=== PATIENT | female | born 1970 | race African-American/Black ===

== ENCOUNTER 2019-12-31 09:57 | Outpatient (CLI) | payer OTHER, SELFPAY ==
--- NOTE | ~2019-12-31 | XR_ITS ---
EXAMINATION: XR lg joint inject/asp w image DATE: 12/31/2019 10:43 INDICATION: Right shoulder pain. TECHNIQUE: A time-out was performed to verify the patient's name, date of , and procedure to b e performed. The procedure including the risks, benefits, and alternatives was discussed with the pat ient. Risks discussed included bleeding and infection. The patient understood the risks and agreed to proceed. The skin overlying the right glenohumeral joint was prepped and draped in usual sterile fa shion. Anesthetic was administered with 1% lidocaine subcutaneously. A 22 G needle was advanced und er fluoroscopic guidance into the joint. Injection of 1 mL of Omnipaque 240 confirmed intra-articula r position of the needle. Subsequently, injectate consisting of 3 mL 0.25% bupivacaine and 1.5 mL 10 mg/mL Kenalog was instilled. The needle was removed and the entry site was cleaned and dressed. Th ere were no immediate complications. Fluoroscopy exposure time was 0.1 minutes. The total number of i mages was 2. FINDINGS: Real-time fluoroscopy demonstrates the needle in the right glenohumeral joint. Patient's pa in prior to procedure:2/10. Patient's pain following the procedure: 0/10. IMPRESSION: 1. Right glenohumeral joint injection of local anesthetic and steroid with decrease in the patient's presenting pain. Reviewed, dictated and finalized at location A. IMPRESSION: 1. Right glenohumeral joint injection of local anesthetic and steroid with decr ease in the patient's presenting pain.
== END 2019-12-31 09:58 | disposition home or self-care (01) ==
LOC: ANHIMG 10:01
PROVIDERS: PCP Family Medicine; Visit Provider Orthopaedic Surgery
DX: M25.511 Pain in right shoulder (principal)
CPT/HCPCS: 20610; 77002; J3301; Q9966

== ENCOUNTER 2021-06-19 00:47 | Day surgery (SDC) | payer OTHER, SELFPAY ==
[2021-05-31 14:31] VITALS: BMI 39.2
[2021-06-19 07:40] VITALS: BP 137/76; PULSE 73; RESP 16; TEMP 36.1; O2SAT 100; BMI 38.8
[2021-06-19] MEDS: LACTATED RINGERS 1,000 ML 150 ML IV CONT (07:54)
--- NOTE | 2021-06-19 08:00 | WPDANESEPPF ---
Anes - Initial Pre Proc Eval Procedure: Operation Date: 06/19/21 08:30 Proposed Procedures p Screening Colonoscopy - Kennedy Basilio MD Date/Time: 06/19/21 08:00 Surgeon: Kennedy Basilio MD Pre Op Diagnosis: neoplasm screening Patient Data Age: 51 Gender: F Height: 1.73 m Weight: 115.8 kg Last Vital Signs Temp 97 F L 06/19/21 07:40 Pulse 73 06/19/21 07:40 Resp 16 06/19/21 07:40 BP 137/76 06/19/21 07:40 Pulse Ox 100 06/19/21 07:40 Allergies Allergy/AdvReac Type Severity Reaction Status Date / Time meperidine Allergy Mild unknown Verified 06/19/21 07:37 peanut Allergy Unknown Urticaria Verified 06/19/21 07:37 sulfamethoxazole Allergy itching Verified 06/19/21 07:37 [From Bactrim] trimethoprim [From Bactrim] Allergy itching Verified 06/19/21 07:37 Home Medications Medication Instructions Recorded Confirmed Type fluticasone propionate 50 1 spray NASAL DAILY #15.8 ml 04/13/20 06/19/21 Rx mcg/actuation nasal spray,suspension meloxicam 15 mg tablet 15 mg PO DAILY #30 tablet 03/27/21 06/19/21 Rx cholecalciferol (vitamin D3) 50 50 mcg PO DAILY 04/10/21 06/19/21 History mcg (2,000 unit) chewable tablet triamcinolone acetonide 0.5 % 1 applic TOPICAL BID #15 g 04/10/21 06/19/21 Rx topical cream amoxicillin 875 mg-potassium 1 tablet PO BID #20 tablet 06/12/21 06/19/21 Rx clavulanate 125 mg tablet Patient hx anesthesia problems: none Family hx anesthesia problems: none Results Review: All pre-operative results and documents have been reviewed as part of the pre-operative evaluation. [facility]LY [facility] Past Medical History Medical History Chronic low back pain with sciatica Environmental allergies GERD (gastroesophageal reflux disease) Irritable bowel syndrome with constipation Other hyperlipidemia Vitamin D deficiency, unspecified Surgical History Surgical History History of cholecystectomy (~2005) History of hysterectomy 2011 Family History Family History Father Diabetes mellitus Family history of alcoholism Family history of kidney disease Family history of diabetes mellitus in first degree relative Social History Social History Alcohol intake: never Substance use: never Substance use type: does not use Living arrangements: alone Gender identity (if verbalized by the patient): Female Spiritual care concerns: No Anes - Eval Final PreProcedure Day of Procedure 06/19/21 08:00 Patient weight: obese Heart: regular rate and rhythm Lungs: clear to auscultation Airway: Mallampati scale class II Neurological: alert and oriented Last oral intake: >/= 8 hours ASA classification: II Emergent: no Anesthetic plan: proceed Anesthesia type and monitoring: general GIVS and standard monitoring Results Review: All pre-operative results and documents have been reviewed as part of the pre-operative evaluation. Informed Consent: The patient's anesthetic plan and its attendant risks and benefits were discussed with the patient/family/POA. Questions were solicited and answers provided to the satisfaction of the patient/family/POA.
--- NOTE | 2021-06-19 08:12 | PM.HPGS ---
History of Present Illness History of Present Illness Consent: Risks, benefits, and alternatives have been discussed and questions answered. Patient agrees to proceed with procedure. Chief complaint: neoplasm screening Narrative: Jil Aguilar is a 51 year old female here for first screening colonoscopy Review of Systems Constitutional: Constitutional: Denies headache(s) and Denies weakness Eyes: Eyes: Denies blurry vision ENT: Reports Normal hearing present, Denies headache(s) and Denies neck pain Cardiovascular: Cardiovascular: Denies chest pain and Denies dyspnea Respiratory: Respiratory: Denies dyspnea Gastrointestinal: Gastrointestinal: Reports no additional gastrointestinal complaints Genitourinary: Genitourinary: Denies dysuria Musculoskeletal: Musculoskeletal: Denies neck pain Integumentary/Breasts: Skin/Breast: Denies dry skin Neurologic: Reports Normal hearing present, Denies headache(s) and Denies weakness Psychiatric: Psychiatric: Denies anxiety Endocrine: Endocrine: Denies change in body appearance Hematologic/Lymphatic: Hematologic/Lymphatic: Denies easy bleeding Allergic/Immunologic: Allergic/Immunologic: Denies urticaria PMFSH Past Medical History Medical History Chronic low back pain with sciatica Environmental allergies GERD (gastroesophageal reflux disease) Irritable bowel syndrome with constipation Other hyperlipidemia Vitamin D deficiency, unspecified Surgical History Surgical History History of cholecystectomy (~2005) History of hysterectomy 2011 Family History Family History Father Diabetes mellitus Family history of alcoholism Family history of kidney disease Family history of diabetes mellitus in first degree relative Social History Social History Alcohol intake: never Substance use: never Substance use type: does not use Living arrangements: alone Gender identity (if verbalized by the patient): Female Spiritual care concerns: No Meds Home Medications and Allergies Home Medications Medication Instructions Recorded Confirmed Type fluticasone propionate 50 1 spray NASAL DAILY #15.8 ml 04/13/20 06/19/21 Rx mcg/actuation nasal spray,suspension meloxicam 15 mg tablet 15 mg PO DAILY #30 tablet 03/27/21 06/19/21 Rx cholecalciferol (vitamin D3) 50 50 mcg PO DAILY 04/10/21 06/19/21 History mcg (2,000 unit) chewable tablet triamcinolone acetonide 0.5 % 1 applic TOPICAL BID #15 g 04/10/21 06/19/21 Rx topical cream amoxicillin 875 mg-potassium 1 tablet PO BID #20 tablet 06/12/21 06/19/21 Rx clavulanate 125 mg tablet Allergies Allergy/AdvReac Type Severity Reaction Status Date / Time meperidine Allergy Mild unknown Verified 06/19/21 07:37 peanut Allergy Unknown Urticaria Verified 06/19/21 07:37 sulfamethoxazole Allergy itching Verified 06/19/21 07:37 [From Bactrim] trimethoprim [From Bactrim] Allergy itching Verified 06/19/21 07:37 Vital Signs Vital Signs - 24 hr 06/19/21 07:40 Temperature 97 F L Pulse Rate 73 Respiratory Rate 16 Blood Pressure 137/76 Pulse Oximetry 100 Exam Const: General: comfortable and no acute distress HENMT: General nose exam: Normal nares present Eyes: General: appearance normal, both eyes and all related structures Neck: Neck: no JVD Resp: Auscultation: clear to auscultation bilaterally Cardio: Rate: regular rate Rhythm: regular rhythm GI: Inspection: non-distended GI Palp: Yes Soft to palpation Skin: General skin exam: normal color Neuro: General: gait normal Speech: normal speech Extrem: General: normal to inspection Psych: Mental Status: mental status grossly normal Assessment and Plan Assessment and plan (1) Colon cancer az
[2021-06-19 08:38] VITALS: BP 115/64; PULSE 77; RESP 20; O2SAT 100
[2021-06-19 08:48] VITALS: BP 115/65; PULSE 74; RESP 18; O2SAT 100
[2021-06-19 08:58] VITALS: BP 133/82; PULSE 60; RESP 18; O2SAT 100
== END 2021-06-19 09:13 | disposition home or self-care (01) ==
PROVIDERS: PCP Family Medicine; Visit Provider Internal Medicine Gastroenterology
PROC: 0DJD8ZZ Inspection of Lower Intestinal Tract, Via Natural or Artificial Opening Endoscopic (ICD-10-PCS; CPT 45378; principal; 2021-06-19 08:30)
DX: Z12.11 Encounter for screening for malignant neoplasm of colon (principal); K57.30 Diverticulosis of large intestine without perforation or abscess without bleeding; D12.2 Benign neoplasm of ascending colon; D12.0 Benign neoplasm of cecum; K64.8 Other hemorrhoids; K21.9 Gastro-esophageal reflux disease without esophagitis; K58.1 Irritable bowel syndrome with constipation; E78.49 Other hyperlipidemia; E55.9 Vitamin D deficiency, unspecified; E66.9 Obesity, unspecified; Z68.38 Body mass index [BMI] 38.0-38.9, adult
CPT/HCPCS: 45380; 45385; 88305; J2704; J7120

== ENCOUNTER 2022-01-18 07:54 | Outpatient (CLI) | payer OTHER, SELFPAY ==
--- NOTE | ~2022-01-18 | MM_ITS ---
EXAMINATION: MM screening padmini BI w gilson HISTORY: Screening TECHNIQUE: Craniocaudal and mediolateral oblique 3-D tomosynthesis images were obtained and synthetic 2-D images were generated. CAD analysis was submitted and interpreted. COMPARISON: Comparison to multiple prior studies sequentially, with oldest reviewed study dated 03/08. BREAST PARENCHYMAL COMPOSITION: There are scattered areas of fibroglandular density. FINDINGS: There is no evidence of suspicious mass, calcification, or architectural distortion to sugg est malignancy in either breast. There has been no suspicious interval change. IMPRESSION: 1. No mammographic evidence of malignancy. 2. Recommend routine screening mammography in one year. BI-RADS Category 1: Negative Reviewed, dictated and finalized at location A.
== END 2022-01-18 07:55 | disposition home or self-care (01) ==
LOC: ANHIMG 07:55
PROVIDERS: PCP Family Medicine; Visit Provider Nurse Practitioner
DX: Z12.31 Encounter for screening mammogram for malignant neoplasm of breast (principal)
CPT/HCPCS: 77063; 77067

== ENCOUNTER 2024-01-09 15:25 | Emergency (ER) | payer BC, SELFPAY ==
--- NOTE | ~2024-01-09 | XR_ITS ---
EXAM: XR finger 1st RT min 2V DATE: 01/09/2024 16:16 HISTORY: no injury, Rt thumb pain . COMPARISON: None available. FINDINGS: Normal mineralization. No acute fracture or dislocation. Well-corticated osseous fragment at the first interphalangeal joint, may represent an old avulsion fracture. Mild scattered degenerati ve change, typical of osteoarthritis. No lytic or blastic lesion. Joint spaces are maintained. No ero jovi or periosteal change. Soft tissues within normal limits. IMPRESSION: No acute osseous finding in the right thumb. Reviewed, dictated and finalized at location K.
[2024-01-09 15:44] VITALS: BP 123/73; PULSE 83; RESP 16; TEMP 36.7; O2SAT 100
--- NOTE | 2024-01-09 15:55 | ED.GENADULT ---
HPI - General Adult General Chief complaint: Extremity Injury, Upper Stated complaint: Right Thumb Pain Source: patient, RN notes reviewed and old records reviewed Mode of arrival: ambulatory Limitations: no limitations History of Present Illness HPI narrative: 53 year old female who presents to [facility] care with complaints of right thumb pain for the past 7-10 days. 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 Patient has noted greatest intensity of pain along the MCP joint. Patient has taken some Tylenol for her discomfort but no resolution in symptoms. MD complaint: right thumb pain Onset (ago): day(s) (-) Location: right and upper extremity (thumb) Severity scale (1-10): 8 Exacerbating factors: other (bending and movement of right thumb) Treatments prior to arrival: other (Tylenol) Related Data Home Medications Medication Instructions Recorded Confirmed cholecalciferol (vitamin D3) 50 50 mcg PO DAILY 04/10/21 01/09/24 mcg (2,000 unit) chewable tablet Allergies Allergy/AdvReac Type Severity Reaction Status Date / Time meperidine Allergy Mild unknown Verified 01/09/24 15:41 peanut Allergy Unknown Urticaria Verified 01/09/24 15:41 sulfamethoxazole Allergy itching Verified 01/09/24 15:41 [From Bactrim] trimethoprim [From Bactrim] Allergy itching Verified 01/09/24 15:41 Review of Systems Review of Systems: CONSTITUTIONAL: Denies fever, chills, or sweats. EYES: Denies visual changes, redness, or discharge. ENT: Denies rhinorrhea, congestion, sore throat, or otalgia. CARDIOVASCULAR: Denies chest pain, palpitations, or edema. RESPIRATORY: Denies cough or dyspnea. GASTROINTESTINAL: Denies abdominal pain, nausea, vomiting, or diarrhea. GENITOURINARY: Denies dysuria or hematuria. SKIN: Denies rash or itching. MUSCULOSKELETAL: Denies back pain, positive for right thumb discomfort especial along MCP joint pain, or myalgia. NEUROLOGIC: Denies headache, numbness, or weakness. PSYCHIATRIC: Denies anxiety or depression. All systems reviewed & are unremarkable except as noted in HPI and below PMFSH Past Medical History Medical History Chronic low back pain with sciatica Environmental allergies GERD (gastroesophageal reflux disease) Hidradenitis axillaris Irritable bowel syndrome with constipation Other hyperlipidemia Tingling of both feet Vitamin D deficiency, unspecified Surgical History Surgical History History of cholecystectomy (~2005) History of hysterectomy 2012 Family History Family History Father Diabetes mellitus Family history of alcoholism Family history of kidney disease Family history of diabetes mellitus in first degree relative Social History Social History Smoking status: Never smoker Alcohol intake: never Substance use: never Substance use type: does not use Lack of Transportation: No Lack of Food: Never True Current Housing: I Have Housing Concerned About Future Housing: No Difficulty Paying Gas/Electric Bills: No Difficulty Paying for Meds: No Currently Unemployed: No Education: Associate Degree Difficulty w/ Childcare or Family Care: No Living arrangements: with family Occupation/Education: occupation Gender identity (if verbalized by the patient): Female Sexual Orientation (if Verbalized by the Patient): Straight or Heterosexual Spiritual care concerns: No Agree to blood products: Yes Comments At time of signature, agree with nursing past medical, surgical, social and family history. There is no relevant family history pertinent to the presenting complaint Exam Narrative:
== END 2024-01-09 16:47 | disposition home or self-care (01) ==
PROVIDERS: Emergency Provider Registered Nurse; PCP Nurse Practitioner Family
DX: M19.041 Primary osteoarthritis, right hand (principal); K21.9 Gastro-esophageal reflux disease without esophagitis; E78.49 Other hyperlipidemia; E55.9 Vitamin D deficiency, unspecified
CPT/HCPCS: 73140; 99213; G0463

== ENCOUNTER 2024-08-21 12:15 | Outpatient (CLI) | payer BC, SELFPAY ==
--- NOTE | ~2024-08-21 | XR_ITS ---
EXAMINATION: XR hip RT 2V w AP pelvis DATE: 08/21/2024 12:34 INDICATION: Right hip pain. TECHNIQUE: An anteroposterior view of the pelvis and 2 views of right hip were obtained. COMPARISON: None. FINDINGS: Alignment is normal. No fracture. There is mild osteoarthritis of the hips. IMPRESSION: 1. Mild osteoarthritis of the hips. Reviewed, dictated and finalized at location A. E GLASS INSTALLER
== END 2024-08-21 12:16 | disposition home or self-care (01) ==
LOC: GOSHIMG 12:16
PROVIDERS: PCP Orthopaedic Surgery; Visit Provider Orthopaedic Surgery
DX: M16.0 Bilateral primary osteoarthritis of hip (principal)
CPT/HCPCS: 73502

== ENCOUNTER 2024-09-15 14:13 | Outpatient (CLI) | payer BC, SELFPAY ==
[2024-09-15 16:12] LABS: Influenza A QL RT-PCR Positive (Negative); Influenza B QL RT-PCR Negative (Negative); SARS-CoV-2 RNA PCR Negative (Negative)
== END 2024-09-15 14:14 | disposition home or self-care (01) ==
LOC: ANHLAB 14:14
PROVIDERS: PCP Nurse Practitioner Family; Visit Provider Family Medicine
DX: J06.9 Acute upper respiratory infection, unspecified (principal)
CPT/HCPCS: 87636

== ENCOUNTER 2024-10-26 07:12 | Outpatient (CLI) | payer BC, SELFPAY ==
--- NOTE | ~2024-10-26 | MM_ITS ---
EXAMINATION: MM screening padmini BI w gilson HISTORY: Screening TECHNIQUE: Craniocaudal and mediolateral oblique 3-D tomosynthesis images were obtained and synthetic 2-D images were generated. CAD analysis was submitted and interpreted. COMPARISON: Comparison to multiple prior studies sequentially, with oldest reviewed study dated 03/2016. BREAST PARENCHYMAL COMPOSITION: Not dense: There are scattered areas of fibroglandular density. FINDINGS: There is no evidence of suspicious mass, calcification, or architectural distortion to sugg est malignancy in either breast. There has been no suspicious interval change. IMPRESSION: 1. No mammographic evidence of malignancy. 2. Recommend routine screening mammography in one year. BI-RADS Category 1: Negative Reviewed, dictated and finalized at location []
--- OUTSIDE RECORDS SUMMARY | 2024-10-26 07:16 | XMS_ITS | Referral Summary ---
Author Organization [facility] [address] Address [address] [place] [id number] Care Team Providers Care Home Economics Extension Worker Name Role Phone No, Physician Primary Care Provider [phone] Allergies No known active allergies Medications pseudoephedrine (SUDAFED) 30 mg tabletIndicatio ns:Nasal Congestion Take 30 mg by mouth every 4 (four) hours as needed for congestion Active fluticasone propionate (FLONASE) 50 mcg/actuation nasal spray Administer 1 spray into each nostril daily Active Active Problems No known active problems Social History Tobacco Use Types Packs/Day Years Used Date Smoking Tobacco: Never Smokeless Tobacco: Never Alcohol Use Standard Drinks/Week Comments Not Currently 0 (1 standard drink = 0.6 oz pur e alcohol) Personal Safety Answer Date Recorded Getting School Help Needed Not on file 09/27 Comments Unknown Sex and Gender Information Value Date Recorded Sex Assigned at Not on file Legal Sex Female 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 Gender Identity Not on file Sexual Orientation Not on file Last Filed Vital Signs Vital Sign Reading Time Taken Comments Blood Pressure 128/82 08/01/2021 9:41 AM PAVER INSTALLER Pulse 78 08/01/2021 9:41 AM PAVER INSTALLER Temperature 36.8 C (98.3 F) 08/01/2021 9:41 AM PAVER INSTALLER Respiratory Rate 16 08/01/2021 9:41 AM PAVER INSTALLER Oxygen Saturation 99% 08/01/2021 9:41 AM PAVER INSTALLER Inhaled Oxygen Concentration - - Weight 116.1 kg (256 lb) 08/01/2021 9:41 AM PAVER INSTALLER Height 172.7 cm (5' 8 ) 08/01/2021 9:41 AM PAVER INSTALLER Body Mass Index 38.92 08/01/2021 9:41 AM PAVER INSTALLER Plan of Treatment Not on file Insurance [employer] Care Teams Home Economics Extension Worker Relationship Specialty Start Date End Date No, Physician PCP - General 01/28/20
--- OUTSIDE RECORDS SUMMARY | 2024-10-26 07:16 | XMS_ITS | Clinical Summary ---
Author Organization [facility] Address [address] [place] [id number] Care Team Providers Care Slip Presser Name Role Phone No, Physician Primary Care Provider [phone] Allergies No known active allergies Medications pseudoephedrine (SUDAFED) 30 mg tabletIndicatio ns:Nasal Congestion Take 30 mg by mouth every 4 (four) hours as needed for congestion Active fluticasone propionate (FLONASE) 50 mcg/actuation nasal spray Administer 1 spray into each nostril daily Active Active Problems No known active problems Surgical History Surgery Date Site/Laterality Comments CHOLECYSTECTOMY HYSTERECTOMY Family History Medical History Relation Name Comments Alcohol abuse Other Arthritis Other Cancer Other Diabetes Other Heart disease Other Hypertension Other Stroke Other Relation Name Status Comments Other Social History Tobacco Use Types Packs/Day Years [...] on file Legal Sex Female 8:40 AM PROCESS COORDINATOR Gender Identity Not on file Sexual Orientation Not on file Obstetrics History Last Filed Vital Signs Vital Sign Reading Time Taken Comments Blood Pressure 128/82 08/01/2021 9:41 AM PROCESS COORDINATOR Pulse 78 08/01/2021 9:41 AM PROCESS COORDINATOR Temperature 36.8 C (98.3 F) 08/01/2021 9:41 AM PROCESS COORDINATOR Respiratory Rate 16 08/01/2021 9:41 AM PROCESS COORDINATOR Oxygen Saturation 99% 08/01/2021 9:41 AM PROCESS COORDINATOR Inhaled Oxygen Concentration - - Weight 116.1 kg (256 lb) 08/01/2021 9:41 AM PROCESS COORDINATOR Height 172.7 cm (5' 8 ) 08/01/2021 9:41 AM PROCESS COORDINATOR Body Mass Index 38.92 08/01/2021 9:41 AM PROCESS COORDINATOR Plan of Treatment Not on file Insurance [place] [id number] Care Teams Slip Presser Relationship Specialty Start Date End Date No, Physician PCP - General 01/28/20
== END 2024-10-26 07:13 | disposition home or self-care (01) ==
LOC: ANHIMG 07:14
PROVIDERS: PCP Nurse Practitioner Family; Visit Provider Obstetrics & Gynecology
DX: Z12.31 Encounter for screening mammogram for malignant neoplasm of breast (principal)
CPT/HCPCS: 77063; 77067